=== PATIENT | male | born 1985 | race Caucasian/White ===

== ENCOUNTER 2019-11-27 17:27 | Emergency (ER) | payer MEDICARE, OTHER ==
[~2019-11-27] VITALS: Ht 182.9 cm; Wt 79.4 kg
[~2019-11-27 17:27] MED LIST: CYCL10 PO; Cyclobenzaprine5 MG PO; IBUP800 PO; Mobic15 MG PO
[2019-11-28] MEDS ORDERED: CYCL10 PO (20:20)
[2019-11-28] MEDS ORDERED: IBU800 MG PO (20:20)
== END 2019-11-27 18:12 | disposition left against medical advice (07) ==
LOC: ER 17:27
DX: Z53.21 Procedure and treatment not carried out due to patient leaving prior to being seen by health care provider (principal)

== ENCOUNTER 2019-11-28 19:29 | Emergency (ER) | payer MEDICARE, OTHER ==
[~2019-11-28] VITALS: Ht 182.9 cm; Wt 79.4 kg
[2019-11-28] MEDS ORDERED: CYCL10 PO (20:20)
[2019-11-28] MEDS ORDERED: IBU800 MG PO (20:20)
== END 2019-11-28 20:27 | disposition home or self-care (01) ==
LOC: ER 19:29
DX: S16.1XXA Strain of muscle, fascia and tendon at neck level, initial encounter (principal); S00.01XA Abrasion of scalp, initial encounter; T20.05XA Burn of unspecified degree of scalp [any part], initial encounter; R20.2 Paresthesia of skin; F17.210 Nicotine dependence, cigarettes, uncomplicated; V89.2XXA Person injured in unspecified motor-vehicle accident, traffic, initial encounter
CPT/HCPCS: 72040; 90714; 99284-25